=== PATIENT | male | born 1975 | race Caucasian/White ===

== ENCOUNTER 2022-03-05 06:40 | Day surgery (SDC) | payer OTHER ==
[~2022-03-05] VITALS: Ht 188 cm; Wt 118.2 kg
[2022-03-05] MEDS ORDERED: MIDAZOLAM HCL 2 MG/2 ML VIAL IVP ONE (06:41)
[2022-03-05] MEDS ORDERED: FentaNYL CITRATE PF 100 MCG/2 ML VIAL IVP ONE (06:41)
[2022-03-05] MEDS ORDERED: BUPIVACAINE HCL/PF 0.5% 30 ML VIAL ONE (06:57)
[2022-03-05] MEDS ORDERED: LIDOCAINE 2%/EPI 1:200,000/PF 20 ML VIAL ONE (06:57)
[2022-03-05 07:33] LABS: COVID AG,FIA SOURCE NASAL SWAB
[2022-03-05] MEDS ORDERED: RINGERS SOLUTION,LACTATED 1,000 ML IV ONE (07:45)
[2022-03-05] MEDS ORDERED: ACETAMINOPHEN 1000 MG/ISO-OSM 100 ML IV ONE (09:45)
[2022-03-05] MEDS ORDERED: FentaNYL CITRATE PF 100 MCG/2 ML VIAL IVP PRN (09:45)
[2022-03-05] MEDS ORDERED: SUGAMMADEX SODIUM 200 MG/2 ML VIAL IVP ONE (09:54)
[2022-03-05] MEDS ORDERED: IBUPROFEN 800 MG TABLET PO PRN (10:00)
[2022-03-05] MEDS ORDERED: ACETAMINOPHEN 500 MG TABLET PO PRN (10:00)
[2022-03-05] MEDS ORDERED: LIDOCAINE/PF 2% 5 ML VIAL IM ONE (12:00)
[2022-03-05] MEDS ORDERED: METOPROLOL TARTRATE 5 MG/5 ML VIAL IVP ONE (12:00)
[2022-03-05] MEDS ORDERED: PROPOFOL 1% 20 ML VIAL IVP ONE (12:00)
[2022-03-05] MEDS ORDERED: ROCURONIUM BROMIDE 10 MG/ML 5 ML VIAL IV ONE (12:00)
[2022-03-05] MEDS ORDERED: KETOROLAC TROMETHAMINE 60 MG/2 ML VIAL IM ONE (12:00)
[2022-03-05] MEDS ORDERED: ONDANSETRON HCL 4 MG/2 ML VIAL IVP ONE (12:00)
[2022-03-05] MEDS ORDERED: OXYGEN THERAPY IH SCH (20:00)
== END 2022-03-05 11:50 | disposition home or self-care (01) ==
LOC: SURGERY 06:40
PROVIDERS: ATTEND Surgery
DX: K43.6 Other and unspecified ventral hernia with obstruction, without gangrene (principal); Z79.899 Other long term (current) drug therapy; Z98.890 Other specified postprocedural states
CPT/HCPCS: 49561; 88302; 87426; 49568; C1781; J3490 ×4; J2704; J3010; J1885; J2250; J2405; Q9967; J7120; C9803